=== PATIENT | female | born 1990 | race Caucasian/White ===

== ENCOUNTER 2021-06-09 18:50 | Emergency (ER) | payer SELFPAY ==
[~2021-06-09] VITALS: Ht 165.1 cm; Wt 122.5 kg
--- NOTE | 2021-06-09 18:56 | NUR ---
TO ER BED 12, BIB 88 [facility] C/O FENTANYL OD. AROUSABLE BUT DROWSY, CONNECTED TO MONITOR, AWAITING MD PINEDO
[2021-06-09] MEDS ORDERED: NALOXONE HCL 0.4 MG/ML AMPUL IV ONE (19:00)
[2021-06-09] MEDS ORDERED: NALOXONE PREFILLED SYRINGE 2 MG/2 ML SYRINGE ONE (19:12)
--- NOTE | 2021-06-09 19:12 | NUR ---
PATIENT REFUSING BLOOD DRAW.
--- NOTE | 2021-06-09 19:22 | NUR ---
REFUSED URINE COLLECTION
--- NOTE | 2021-06-09 19:51 | NUR ---
Patient does not wish to proceed with medical care recommended by Dr. Ramos. Patient given information related to possible complications, up to and including , which could occur as a result of leaving the hospital at this time. Patient verbalizes understanding of risks involved due to leaving against medical advice. Patient has signed AMA form.
[2021-06-09 19:52] VITALS: BP 122/80
== END 2021-06-09 19:52 | disposition home or self-care (01) ==
LOC: ER 18:53
DX: T40.411A Poisoning by fentanyl or fentanyl analogs, accidental (unintentional), initial encounter (principal); R41.82 Altered mental status, unspecified; F17.210 Nicotine dependence, cigarettes, uncomplicated; F12.90 Cannabis use, unspecified, uncomplicated; Y92.89 Other specified places as the place of occurrence of the external cause
CPT/HCPCS: 96374; 99283; 99406; J2310